=== PATIENT | female | born 1985 | race Caucasian/White ===

== ENCOUNTER 2016-07-22 15:27 | Emergency (ER) | payer MEDICAID | END 2016-07-22 17:22 | disposition home or self-care (01) | DX: S60.221A Contusion of right hand, initial encounter (principal); S63.91XA Sprain of unspecified part of right wrist and hand, initial encounter; W22.09XA Striking against other stationary object, initial encounter; Y92.810 Car as the place of occurrence of the external cause; R03.0 Elevated blood-pressure reading, without diagnosis of hypertension ==

== ENCOUNTER 2016-11-30 17:33 | Emergency (ER) | payer MEDICAID ==
[2016-11-30 17:51] VITALS: BP 129/81
[2016-11-30] MEDS ORDERED: BUFFERED LIDOCAINE 10 ML SYRINGE SUBQ STA (18:44)
[2016-11-30] MEDS ORDERED: BUFFERED LIDOCAINE 10 ML SYRINGE ONE (18:52)
--- NOTE | 2016-11-30 20:17 | ED Physician Documentation ---
History of Present Illness - Stated complaint Stated Complaint: R WRIST INJ - Chief complaint Chief Complaint: Ext Problem - History obtained from History obtained from: Patient (Patient is a 31-year-old yojea-pljy-rqahzoul female who sustained a laceration to her right wrist when she accidentally had it pushed through a glass window pane of a large door. This laceration is on the volar ulnar aspect of her right forearm. She denies any numbness and tingling in movement of her hand is unaffected. Her tetanus is up-to-date she believes she has no other complaints of injury. Bleeding is controlled with direct pressure. Review of systems: For pertinent positive and negatives in the review of systems please see the history of present illness, otherwise all other systems have been reviewed and are negative. Dragon disclaimer: Parts of this medical record were created using voice recognition technology. Because of the inherent limitations of this system, occasional same sounding word substitutions do occur and persist despite proofreading. Please read the document for context.) Review of Systems Musculoskeletal: reports: Extremity pain PD PAST MEDICAL HISTORY - Past Medical History Past Medical History: No - Past Surgical History Past Surgical History: Yes Ortho: ACL reconstruction - Present Medications Home Medications: Ambulatory Orders Medication Instructions Recorded Confirmed Cephalexin [Keflex] 500 mg PO QID #20 capsule 11/30/16 Tramadol HCl 50 mg PO Q8HR PRN #14 tablet 11/30/16 - Allergies Allergies/Adverse Reactions: Allergies Allergy/AdvReac Type Severity Reaction Status Date / Time ibuprofen Allergy Intermediate Cramps Verified 02/26/14 11:06 - Social History Does the pt smoke?: Yes Smoking Status: Current every day smoker Does the pt drink ETOH?: No Does the pt have substance abuse?: No - Immunizations Immunizations are current?: Yes Immunizations: TDAP current <10years - POLST Patient has POLST: No PD ED PE NORMAL - Vitals Vital signs reviewed: Yes - General General: Alert and oriented X 3, No acute distress - Extremities Extremities: Other (She has a 5 cm laceration over the right volar aspect of her forearm. It is over the distal radius. There is another smaller 0.5 cm laceration distal to this.) Results - Vitals Vitals: Vital Signs - 24 hr 11/30/16 17:49 Temperature 36.6 C Heart Rate 94 Respiratory 18 Rate Blood Pressure 129/81 H O2 Saturation 99 Oxygen O2 Source Room air PD MEDICAL DECISION MAKING - ED course Complexity details: re-evaluated patient, d/w patient ED course: Pleasant right-hand dominant 31-year-old female sustained a glass laceration to the right forearm. The wound was cleansed, irrigated, and anesthetized with buffered lidocaine. The patient tolerated procedure well. It was gently irrigated and carefully probed for foreign body. Likely this wound is superficial to the tendons. It was inspected very carefully and there is a small cut into the fascia covering the muscle belly but nothing deep to the level of the artery or the tendons. Tendon function was checked individually for each of the 5 fingers and found to be normal. The wound was retracted and tendon function was determined to be normal while visually examining the tendons of the past deep to the wound. I did not see any tendons whatsoever. The wound was closed using kary. The wound edges were held in close approximation than they were stapled. There is good approximation and hemostasis. It was then cleansed carefully and a compression bandage was placed over the kary. Because of the very deep wound the patient will be treated with a small amount of pain medication and also prophylactic antibiotics. She was subsequently asked to remove the kary in approximately 10 days. 5 cm laceration and one smaller 0.5 cm laceration of the right wrist volar aspect without tendon involvement. Disposition to home Departure - Departure Disposition: 01 Home, Self Care Clinical Impression: Laceration of wrist without complication Qualifiers: Encounter type: initial encounter Laterality: right Qualified Code(s): S61.511A - Laceration without foreign body of right wrist, initial encounter Condition: Good Instructions: Incision Care, ED Laceration Ext Sutr Stap Tape Follow-Up: Lisa Mcintosh ARNP [Primary Care Provider] - Prescriptions: Tramadol HCl 50 mg PO Q8HR PRN #14 tablet PRN Reason: Pain Cephalexin [Keflex] 500 mg PO QID #20 capsule
== END 2016-11-30 20:20 | disposition home or self-care (01) ==
LOC: ED 17:33
DX: S61.511A Laceration without foreign body of right wrist, initial encounter (principal); W25.XXXA Contact with sharp glass, initial encounter; F17.200 Nicotine dependence, unspecified, uncomplicated
CPT/HCPCS: 12002; 99283

== ENCOUNTER 2017-07-24 08:00 | Outpatient (CLI) | payer MEDICAID | END 2017-07-24 08:01 | disposition home or self-care (01) | LOC: LAB.R 08:00 | PROVIDERS: ATTEND Obstetrics & Gynecology | DX: Z11.3 Encounter for screening for infections with a predominantly sexual mode of transmission (principal); Z36.9 Encounter for antenatal screening, unspecified | CPT/HCPCS: 87491; 87591 ==

== ENCOUNTER 2017-08-08 15:03 | Outpatient (CLI) | payer MEDICAID ==
[2017-08-08 17:51] LABS: BASOPHILS % (AUTO) 0.5 %; EOSINOPHILS # (AUTO) 0.2 10^3/uL (0.0-0.7); EOSINOPHILS % (AUTO) 2.7 %; HGB - HEMOGLOBIN 12.5 g/dL (12.0-16.0); LYMPHOCYTES # (AUTO) 1.4 10^3/uL (1.5-3.5); LYMPHOCYTES % (AUTO) 19.9 %; MEAN CORPUSCULAR HEMOGLOBIN 29.3 pg (27.0-31.0); MEAN CORPUSCULAR HGB CONC 34.1 g/dL (32.0-36.0); MONOCYTES # (AUTO) 0.5 10^3/uL (0.0-1.0); MONOCYTES % (AUTO) 6.6 %; NEUTROPHILS % (AUTO) 70.3 %; PLT - PLATELET COUNT 226 10^3/uL (130-450); RED BLOOD COUNT 4.28 10^6/uL (4.20-5.40); WHITE BLOOD COUNT 7.1 x10^3/uL (4.8-10.8)
[2017-08-09 10:01] LABS: HEPATITIS B SURFACE ANTIGEN NON-REACTIVE (NON-REACTIVE); HEPATITIS C ANTIBODY NON-REACTIVE (NON-REACTIVE)
[2017-08-09 15:47] LABS: HIV AG/AB 4TH GEN NON-REACTIVE (NON-REACTIVE)
== END 2017-08-08 15:04 | disposition home or self-care (01) ==
LOC: LAB.F 15:03
PROVIDERS: ATTEND Obstetrics & Gynecology
DX: Z36.9 Encounter for antenatal screening, unspecified (principal); Z11.3 Encounter for screening for infections with a predominantly sexual mode of transmission
CPT/HCPCS: 36415; 81001; 81599; 85025; 86592; 86762; 86803; 86850; 86900; 86901; 87340; 87389

== ENCOUNTER 2017-08-09 14:09 | Outpatient (CLI) | payer MEDICAID ==
[2017-08-09 17:45] LABS: BILIRUBIN,URINE NEGATIVE (NEGATIVE); GLUCOSE, URINE (UA) NEGATIVE (NEGATIVE); KETONES,URINE (UA) NEGATIVE (NEGATIVE); LEUKOCYTE ESTERASE, URINE NEGATIVE (NEGATIVE); NITRITE,URINE NEGATIVE (NEGATIVE); OCCULT BLOOD,URINE NEGATIVE (NEGATIVE); PROTEIN,URINE NEGATIVE (NEGATIVE); UROBILINOGEN,URINE 0.2 (NORMAL) E.U./dL (NORMAL)
[2017-08-09 17:48] LABS: CLARITY,URINE CLEAR (CLEAR)
[2017-08-09 17:58] LABS: BACTERIA,URINE None Seen /HPF (None Seen); RBC,URINE None Seen /HPF (0-5); SQUAMOUS EPITHELIAL CELL,UR NONE SEEN (<= Few)
== END 2017-08-09 14:10 | disposition home or self-care (01) ==
LOC: LAB.F 14:09
PROVIDERS: ATTEND Obstetrics & Gynecology
DX: Z36.9 Encounter for antenatal screening, unspecified (principal); Z11.3 Encounter for screening for infections with a predominantly sexual mode of transmission
CPT/HCPCS: 81001

== ENCOUNTER 2017-08-24 12:40 | Outpatient (CLI) | payer MEDICAID | END 2017-08-24 12:41 | disposition home or self-care (01) | LOC: LAB 12:40 | PROVIDERS: ATTEND Obstetrics & Gynecology | DX: Z13.79 Encounter for other screening for genetic and chromosomal anomalies (principal) | CPT/HCPCS: 36415 ==

== ENCOUNTER 2017-10-18 07:19 | Outpatient (CLI) | payer MEDICAID ==
--- NOTE | 2017-10-18 13:38 | Ultrasound Report ---
Procedure Date: 10/18/2017 Accession Number: [id number] / [id number] Procedure: US - OB Detailed Eval CPT Code: FULL RESULT: EXAM: OB Detailed Eval DATE: 10/18/2017 8:42 AM CLINICAL HISTORY: ENCOUNTER FOR SCREENING, UNSPECIFIED TECHNIQUE: Real-time scanning was performed with novelties sales representative static images obtained. COMPARISON: None LAST MENSTRUAL PERIOD: Unsure US Age: 23 weeks 3 days EFW Hadlock: 574 grams Heart Rate: 137 bpm US EDC: 02/11/18 BPD Hadlock: 23 weeks 5 days; Mean mm 60 HC Hadlock: 23 weeks 3 days; Mean mm 213 AC Hadlock: 23 weeks 2 days; Mean mm 184 FL Hadlock: 23 weeks 1 days; Mean mm 41 Presentation: Cephalic Placental Location: Anterior Cervical Length: 3.5 cm Amniotic Fluid: ROSAMARIA Subjectively normal cm; MVP 5.3 cm FINDINGS: Within the normal-appearing uterus, closed by 3.5 cm cervix resides a single viable intrauterine gestation with estimated weight of 574 g and sonographic age of 23 weeks and 3 days in cephalic presentation with an anterior placenta and no evidence of previa. Maternal adnexa appear unremarkable. The following anatomic structures were visualized and appear normal: The intracranial contents, including the ventricles and posterior fossa; the lips and orbits; the spine; the heart, including 4 chamber view and outflow tracts, and diaphragm; the abdominal contents, including the stomach, the bilateral kidneys, and urinary bladder, as well as a normal 3-vessel cord insertion; 4 limbs. IMPRESSION: Single live intrauterine gestation with a sonographic age of 23 weeks and 3 days.
== END 2017-10-18 07:20 | disposition home or self-care (01) ==
LOC: DI 07:19
PROVIDERS: ATTEND Obstetrics & Gynecology
DX: Z36.9 Encounter for antenatal screening, unspecified (principal)
CPT/HCPCS: 76811

== ENCOUNTER 2017-11-08 10:06 | Outpatient (CLI) | payer MEDICAID | END 2017-11-08 10:07 | disposition home or self-care (01) | LOC: LAB 10:06 | PROVIDERS: ATTEND Obstetrics & Gynecology | DX: Z36.9 Encounter for antenatal screening, unspecified (principal) | CPT/HCPCS: 36415; 82950; 85018; 86850 ==

== ENCOUNTER 2017-12-12 09:33 | Outpatient (CLI) | payer MEDICAID | END 2017-12-12 09:34 | disposition home or self-care (01) | LOC: LAB.R 09:33 | PROVIDERS: ATTEND Obstetrics & Gynecology | DX: O47.03 False labor before 37 completed weeks of gestation, third trimester (principal) | CPT/HCPCS: 82731 ==

== ENCOUNTER 2018-01-11 10:26 | Outpatient (CLI) | payer MEDICAID | END 2018-01-11 10:27 | disposition home or self-care (01) | LOC: LAB.R 10:26 | PROVIDERS: ATTEND Obstetrics & Gynecology | DX: Z11.3 Encounter for screening for infections with a predominantly sexual mode of transmission (principal); Z36.85 Encounter for antenatal screening for Streptococcus B | CPT/HCPCS: 87081; 87491; 87591 ==

== ENCOUNTER 2018-01-15 15:20 | Outpatient (CLI) | payer MEDICAID ==
[2018-01-15 15:52] LABS: BILIRUBIN,URINE NEGATIVE (NEGATIVE); GLUCOSE, URINE (UA) NEGATIVE (NEGATIVE); KETONES,URINE (UA) NEGATIVE (NEGATIVE); LEUKOCYTE ESTERASE, URINE TRACE (NEGATIVE); NITRITE,URINE NEGATIVE (NEGATIVE); OCCULT BLOOD,URINE NEGATIVE (NEGATIVE); PROTEIN,URINE NEGATIVE (NEGATIVE); UROBILINOGEN,URINE 0.2 (NORMAL) E.U./dL (NORMAL)
[2018-01-15 15:58] LABS: CLARITY,URINE HAZY (CLEAR)
[2018-01-15 16:05] LABS: BACTERIA,URINE Few /HPF (None Seen); RBC,URINE 0-5 /HPF (0-5); SQUAMOUS EPITHELIAL CELL,UR MANY Squamous (<= Few)
[2018-01-15 16:24] VITALS: BP 127/79
--- NOTE | 2018-01-15 17:08 | PROVIDER PROGRESS NOTE ---
Subjective - Prog Note Date Prog Note Date: 01/15/18 Prog Note Time: 17:00 - Subjective Pt reports feeling: No change Subjective: Nighat Lindsey is a 32-year-old primigravida at 35 weeks 5 days gestation. She reports uterine contractions off and on for the last 36 hours which have become more regular in the last 4. She does not suspect leakage of fluid nor does she report pelvic pressure. There are no signs or symptoms of preeclampsia or UTI. Objective - Vital Signs/Intake & Output Vital Signs: Vital Signs x48h Temp Pulse Resp BP Pulse Ox 01/15/18 16:23 78 18 127/79 100 01/15/18 15:34 98.1 F 82 18 136/81 H 99 - Lab Results Other Labs: Lab Results x24hrs 01/15/18 Range/Units 15:40 Urine Color YELLOW Urine Clarity HAZY (CLEAR) Urine pH 6.0 (5.0-7.5) PH Ur Specific [place] <=1.005 (1.002-1.030) Urine Protein NEGATIVE (NEGATIVE) mg/dL Urine Glucose (UA) NEGATIVE (NEGATIVE) mg/dL Urine Ketones NEGATIVE (NEGATIVE) mg/dL Urine Occult Blood NEGATIVE (NEGATIVE) Urine Nitrite NEGATIVE (NEGATIVE) Urine Bilirubin NEGATIVE (NEGATIVE) Urine Urobilinogen 0.2 (NORMAL) (NORMAL) E.U./dL Ur Leukocyte Esterase TRACE H (NEGATIVE) Urine RBC 0-5 (0-5) /HPF Urine WBC 4-5 (0-5) /HPF Ur Squamous Epith Cells MANY Squamous H (<= Few) Urine Bacteria Few (None Seen) /HPF Urine Culture Comments NOT INDICATED Physical Exam - Physical Exam General: positive: No acute distress Abdomen: positive: Other (Benign abdominal exam Gravid abdomen with fundal height appropriate for dates, Ritchie vertex position.) Female : positive: Normal external, Dilated cervix (2 cm 50-60% effacement; -2 station; bag of water intact), Enlarged uterus (Uterus appropriate size, flaccid normal resting tone minimal contractions to mild), Other (Category 1 heart tracing; baseline 130s-140s with multiple accelerations and no decelerations moderate variability), Marble Mason present Extremities: positive: No pedal edema Assessment/Plan - Assessment/Plan Assessment: Mild to minimal contractions without cervical change from baseline. Patient is not in labor. Plan: PLAN * Patient given reassurance; * discussed signs and symptoms of labor; * patient visit on at clinic. * Urinalysis negative for UTI
== END 2018-01-15 17:15 | disposition home or self-care (01) ==
LOC: WFO 15:20 → FBP 15:22 → WFO 17:15
PROVIDERS: ATTEND Obstetrics & Gynecology
DX: O47.03 False labor before 37 completed weeks of gestation, third trimester (principal); Z3A.35 35 weeks gestation of pregnancy
CPT/HCPCS: 81001; 87086; 99213

== ENCOUNTER 2018-01-30 11:33 | Outpatient (CLI) | payer MEDICAID ==
[2018-01-31 12:21] LABS: HEPATITIS C ANTIBODY NON-REACTIVE (NON-REACTIVE)
[2018-01-31 14:21] LABS: HIV AG/AB 4TH GEN NON-REACTIVE (NON-REACTIVE)
[2018-02-01 12:26] LABS: HSV 1 IGG TYPE SPECIFIC AB 5.58 index; HSV 2 IGG TYPE SPECIFIC AB 10.8 index
== END 2018-01-30 11:34 | disposition home or self-care (01) ==
LOC: LAB 11:33
PROVIDERS: ATTEND Obstetrics & Gynecology
DX: Z11.3 Encounter for screening for infections with a predominantly sexual mode of transmission (principal)
CPT/HCPCS: 36415; 81599; 86592; 86695; 86696; 86803; 87389

== ENCOUNTER 2018-02-08 06:00 | Inpatient (IN) | payer MEDICAID ==
[2018-02-08] MEDS ORDERED: LACTATED RINGERS 1,000 ML IV ONE (06:15)
[2018-02-08] MEDS ORDERED: OXYTOCIN/SODIUM CHLORIDE 500 ML IV ONE ×2 (06:15→08:33)
[2018-02-08] MEDS ORDERED: SODIUM CHLORIDE FLUSH 0.9% 10 ML SYRINGE ONE (06:15)
[2018-02-08] MEDS ORDERED: SODIUM CHLORIDE FLUSH 0.9% 10 ML SYRINGE IVP PRN (06:18)
[2018-02-08] MEDS ORDERED: LIDOCAINE 1% 50 ML MDV ONE (06:29)
[2018-02-08 06:48] LABS: BASOPHILS % (AUTO) 0.3 %; EOSINOPHILS # (AUTO) 0.1 10^3/uL (0.0-0.7); EOSINOPHILS % (AUTO) 0.7 %; LYMPHOCYTES # (AUTO) 1.2 10^3/uL (1.5-3.5); LYMPHOCYTES % (AUTO) 9.3 %; MEAN CORPUSCULAR HEMOGLOBIN 28.2 pg (27.0-31.0); MEAN CORPUSCULAR HGB CONC 33.9 g/dL (32.0-36.0); MEAN CORPUSCULAR VOLUME 83.2 fL (81.0-99.0); MEAN PLATELET VOLUME 8.1 fL (7.9-10.8); MONOCYTES # (AUTO) 0.9 10^3/uL (0.0-1.0); MONOCYTES % (AUTO) 7.1 %; NEUTROPHILS # (AUTO) 10.6 10^3/uL (1.5-6.6); NEUTROPHILS % (AUTO) 82.6 %; PLT - PLATELET COUNT 213 10^3/uL (130-450); RED BLOOD COUNT 4.26 10^6/uL (4.20-5.40); RED CELL DISTRIBUTION WIDTH 15.4 % (12.0-15.0); WHITE BLOOD COUNT 12.8 x10^3/uL (4.8-10.8)
--- NOTE | 2018-02-08 06:59 | HISTORY & PHYSICAL EXAMINATION ---
Admit History - Visit Reason Visit Reason: Contractions (Sudden onset at 0145.) - : 2 Parity: 0 Premature: 0 Ectopic: 0 : 1 Care: positive: [facility] Complications This : positive: None (Pt is O+ Rhubella nonimmune, GBS negative) Smoking Status: Former smoker - Mother's Labs Mother's Blood Type: positive: O Mother's RH: positive: Positive GBS: positive: Group B Step Negative Rubella Status: positive: Non-immune - Other Maternal History Other Maternal History: Monica started her OB care at 10 weeks. regular visits. 50 Gm 126. Ob course unremarkable. Meds/Allgy - Home Medications Home Medications: Ambulatory Orders Medication Instructions Recorded Confirmed Cephalexin [Keflex] 500 mg PO QID #20 capsule 11/30/16 Tramadol HCl 50 mg PO Q8HR PRN #14 tablet 11/30/16 - Allergies Allergies/Adverse Reactions: Allergies Allergy/AdvReac Type Severity Reaction Status Date / Time ibuprofen Allergy Intermediate Cramps Verified 02/26/14 11:06 Review of Systems - Constitutional Constitutional: denies: Fatigue, Fever - Eyes Eyes: denies: Pain Physical - Abdominal Exam Contraction Frequency (min/apart): q 3 min Contraction Intensity: positive: Strong Uterine Resting Tone: positive: Soft - Monitoring Heart Rate Baseline: 130 Strip Review: positive: Category I - Presentation Presentation: positive: Vertex - Vaginal Exam Membranes: positive: Membranes intact Dilation (in cm): 7 Effacement (%): 90 Station: positive: 0 Cervical Position: positive: Midposition - Speculum Exam Speculum Exam Performed: positive: No - Other Notes Labor Progress Note/Additional Text: Pt is a 32 YO EDC 02/14/18, 39.1 weeks with spontaneous onset of labor. currently /0. Reviewed pain control. pt declines Epidural, NO2. laboring well. GBS negative, Rubella nonimmune.
[2018-02-08] MEDS ORDERED: LACTATED RINGERS 1,000 ML IV SCH ×2 (07:00→10:00)
[2018-02-08] MEDS ORDERED: SODIUM CHLORIDE FLUSH 0.9% 10 ML SYRINGE IVP SCH (09:00)
[2018-02-08] MEDS ORDERED: ACETAMINOPHEN 500 MG TABLET PO SCH (10:00)
[2018-02-08] MEDS ORDERED: OXYTOCIN/SODIUM CHLORIDE 500 ML IV SCH (10:00)
[2018-02-08] MEDS: HYDROcod/ACETAM 5/325 MG TABLET PO PRN ×3 (10:27→18:41)
[2018-02-08] MEDS: DOCUSATE SODIUM 100 MG CAPSULE PO SCH ×2 (10:28→23:55)
[2018-02-08] MEDS ORDERED: HYDROCORTISONE/PRAMOXINE 10 GM PR PRN (16:56)
[2018-02-08] MEDS ORDERED: MEASLES,MUMPS & RUBELLA VACC 0.5 ML VIAL SUBQ ONE (17:00)
--- NOTE | 2018-02-08 17:27 | DELIVERY NOTE ---
Delivery Note - Labor Labor: positive: Spontaneous - Delivery Method Delivery Method: positive: Spontaneous vaginal delivery - Presentation Presentation: positive: Vertex, Compound (left hand), KEVIN - left occiput anterior - Nuchal Cord Nuchal Cord: positive: None (True knot) - Anesthetic Anesthetic Type: Anesthetic: positive: Lidocaine - 1% plain Volume: positive: Other (30 ml) - Amniotic Fluid Description Amniotic Fluid Description: positive: Clear - Episiotomy Type Episiotomy Type: positive: None - Laceration Laceration: positive: Labial (left and right second degree) - Suture Suture Type: positive: Vicryl Suture Size: positive: 3-0 - Delivery Outcome Delivery Outcome: positive: Livebirth - [place]on: positive: Placed in direct skin contact with mother, Bulb syringe, Stimulated, [place] used sex: positive: Female (Antonino) - Cord Cord: positive: 3 vessels (true knot) - Placenta Placenta: positive: Intact - Estimated Blood Loss Estimated Blood Loss (in cc): 350 - Delivery Comments (Free Text/Narrative) Delivery Comments (Free Text/Narrative): pt reached complete at 0735, AROM 3 min later with clear fluid. Pushing commenced at 0746. good expulsitory effort delivered a live female with apgars of 9/9 over an intact perneum at 0757. Left compound hand encountered. Placenta followed complete 18 min later. It was inspected and determined to be intact. Two labial laturations nmoted dn repared unde local anastheais adn 3-0 Vicril. Total EBL 350 ml.
[2018-02-08] MEDS: HYDROCORTISONE 1% CREAM 28 GM TUBE TOP SCH (18:44)
[2018-02-08] MEDS ORDERED: HYDROCORTISONE 1% CREAM 28 GM TUBE TOP SCH (21:00)
[2018-02-08] MEDS: ACETAMINOPHEN 500 MG TABLET PO PRN (23:54)
[2018-02-09 07:11] LABS: BASOPHILS # (AUTO) 0.1 10^3/uL (0.0-0.1); BASOPHILS % (AUTO) 0.7 %; EOSINOPHILS # (AUTO) 0.1 10^3/uL (0.0-0.7); EOSINOPHILS % (AUTO) 0.9 %; HGB - HEMOGLOBIN 10.8 g/dL (12.0-16.0); LYMPHOCYTES # (AUTO) 1.6 10^3/uL (1.5-3.5); LYMPHOCYTES % (AUTO) 16.1 %; MEAN CORPUSCULAR HEMOGLOBIN 27.6 pg (27.0-31.0); MEAN CORPUSCULAR HGB CONC 32.7 g/dL (32.0-36.0); MEAN CORPUSCULAR VOLUME 84.4 fL (81.0-99.0); MONOCYTES # (AUTO) 0.8 10^3/uL (0.0-1.0); MONOCYTES % (AUTO) 8.1 %; NEUTROPHILS # (AUTO) 7.3 10^3/uL (1.5-6.6); NEUTROPHILS % (AUTO) 74.2 %; PLT - PLATELET COUNT 180 10^3/uL (130-450); RED CELL DISTRIBUTION WIDTH 15.6 % (12.0-15.0); WHITE BLOOD COUNT 9.8 x10^3/uL (4.8-10.8)
[2018-02-09] MEDS: DOCUSATE SODIUM 100 MG CAPSULE PO SCH (08:42)
[2018-02-09] MEDS: ACETAMINOPHEN 500 MG TABLET PO PRN (08:42)
--- NOTE | 2018-02-09 11:05 | PROVIDER PROGRESS NOTE ---
Subjective - Prog Note Date Prog Note Date: 02/09/18 Prog Note Time: 11:03 - Subjective Pt reports feeling: Improved Subjective: Patient sitting in bed. Family members with her at bedside. Baby just had a photo shoot. Nighat doing well. Ambulating and tolerating a regular diet. Urinating without difficulty and pain controlled with po Tylenol. Normal lochia. Verbalizes her desire to go home. Still awaiting baby to pass stool. Objective - Vital Signs/Intake & Output Reviewed Vital Signs: Yes Vital Signs: Vital Signs x48h Temp Pulse Resp BP Pulse Ox 02/09/18 08:35 270.9 F H 94 16 132/73 H 99 02/09/18 04:40 98.2 F 80 16 112/61 99 Intake & Output: Intake & Output 02/06/18 02/07/18 02/08/18 02/09/18 23:59 23:59 23:59 23:59 Output Total 551 Balance -551 - Objective General Appearance: positive: No acute distress Eyes Bilateral: positive: Normal inspection Abdomen: positive: Non-tender (Firm fundus) Extremities: positive: Non-tender, Nml appearance Neurologic/Psychiatric: positive: Oriented x3 - Lab Results Fish Bones: 02/09/18 06:45 Other Labs: Lab Results x24hrs 02/09/18 Range/Units 06:45 WBC 9.8 (4.8-10.8) x10^3/uL RBC 3.90 L (4.20-5.40) 10^6/uL Hgb 10.8 L (12.0-16.0) g/dL Hct 32.9 L (37.0-47.0) % MCV 84.4 (81.0-99.0) fL MCH 27.6 (27.0-31.0) pg MCHC 32.7 (32.0-36.0) g/dL RDW 15.6 H (12.0-15.0) % Plt Count 180 (130-450) 10^3/uL MPV 8.0 (7.9-10.8) fL Neut # (Auto) 7.3 H (1.5-6.6) 10^3/uL Lymph # (Auto) 1.6 (1.5-3.5) 10^3/uL [place] # (Auto) 0.8 (0.0-1.0) 10^3/uL Eos # (Auto) 0.1 (0.0-0.7) 10^3/uL Baso # (Auto) 0.1 (0.0-0.1) 10^3/uL Absolute Nucleated RBC 0.00 x10^3/uL Nucleated RBC % 0.0 /100WBC Assessment/Plan - Problem List (1) Vaginal delivery Impression: 32 yo S/p Normal recovery Discharge to home Take OTC tylenol for pain Follow up with Dr Angeles in 3 and 8 weeks Call for worsening fevers, chills, abdominal pain or vaginal bleeding Discharge Plan Disposition: 01 Home, Self Care Condition: Good Diet: Regular Activity Restrictions: Activity as Tolerated Shower Restrictions: No Driving Restrictions: No No Smoking: If you smoke, Please STOP! Call for help.
[2018-02-09] MEDS: HYDROcod/ACETAM 5/325 MG TABLET PO PRN (11:56)
[2018-02-09] MEDS ORDERED: MEASLES,MUMPS & RUBELLA VACC 0.5 ML VIAL SUBQ ONE (12:00)
[2018-02-09 12:03] VITALS: BP 129/68
--- NOTE | 2018-02-09 12:33 | DISCHARGE SUMMARY ---
Physician: Gina Jamil DO FACOG DATE OF ADMISSION: 02/08/2018 DATE OF DISCHARGE: 02/09/2018 DIAGNOSES ON ADMISSION 1. A 32-year-old G2, P0-0-1-0 with a 39 and 1/7 week intrauterine . 2. Active labor. DIAGNOSES ON DISCHARGE 1. A 32-year-old G2, P1-0-0-1, status post spontaneous vaginal delivery 02/08/2018. 2. Normal recovery. BRIEF HISTORY: The patient is a patient at [facility] who presented to labor and delivery on 02/08/2018. She was found to be in active labor at 7 cm dilated, 80% effaced and -1 station. The patient spontaneously delivered a viable female infant weighing 3448 gram. Apgars are 9 and 9 at 1 and 5 minutes respectively. A compound hand was encountered. The patient sustained 2 labial lacerations that were repaired with 3-0 Vicryl. EBL 350 mL. A true knot was noted at the time of delivery. The baby's name is Antonino. The patient's course has been unremarkable. She is ambulating and tolerating a regular diet. The patient is also urinating without difficulty, and her lochia is described as normal. Her pain is controlled with oral Tylenol. The patient will be discharged home today with instructions to followup with us at [facility] in 3 and 8 weeks. She is to take Tylenol for any pain she may experience. The patient is to call if she has any fevers, chills, abdominal pain or vaginal bleeding that has worsened. TD: 02/09/2018 11:17 MICHAEL
[2018-02-09] MEDS: HYDROCORTISONE 1% CREAM 28 GM TUBE TOP SCH (12:59)
--- NOTE | 2018-02-09 14:48 | Labor Flowsheet ---
Labor Flowsheet Datetime Report Generated by CPN: 02/09/2018 14:47 Datetime: 02/09/2018 11:28 VITAL SIGNS NBP Sys/Jennifer/Mean (mmHg): 129 : 68 : 81 Pulse: 85 LaborFlag: Labor Datetime: 02/08/2018 19:54 SpO2 (%): 99 Datetime: 02/08/2018 07:55 UTERINE ACTIVITY Monitor Mode: Palpation Frequency (min): 2-3 Quality: Strong Pattern: Normal: <= 5 Contractions in 10 Minutes Contraction Comments: pushing with each ctx ASSESSMENT A Monitor Mode: Telemetry Variability: Moderate 6-25 bpm Accelerations: 15X15 Category: Category I Comments: FHR 145-165 accels, unable to get FHR with head , FHT heard at 130s PATIENT CARE Oxygen Method: Room Air Datetime: 02/08/2018 07:46 STAGE 2 Pushing: Urge to Push Pushing Position: Pushing with Contractions Pushing Progress: Descent with Pushing Stage 2 Comments: baby delivereda t 0757 compound left hand and true knot Datetime: 02/08/2018 07:38 Membrane Status: Ruptured Membranes Rupture Method: Artificial Amniotic Fluid Color: Clear Amniotic Fluid Amount: Small Datetime: 02/08/2018 07:35 Duration (sec): 60-110 Resting Tone (Palpate): Relaxed FHR Baseline Rate : 140 PAIN Pain Coping: Breathing Through Contractions; Crying Pain Assessment Comments: pt has strong urge to push. VAGINAL EXAM Dilatation (cm): 10.0 Effacement (%): 100 Station: 2 Exam by: dr giem Comfort Measures: Breathing/Relaxation; Coaching COMMUNICATION Communication: Provider at Bedside Datetime: 02/08/2018 07:24 Vaginal Exam Comments: bulgy bag Datetime: 02/08/2018 06:52 Patient Position/Activity: Standing; Walking I/O Interventions: Up to BR Datetime: 02/08/2018 06:50 Decelerations: Variable
== END 2018-02-09 13:00 | disposition home or self-care (01) | DRG 807 ==
LOC: WFO 06:00 → FBP 06:02 → WFO 06:10 → FBP 06:11 → EEVIPCON 06:11
PROVIDERS: ADMIT Obstetrics & Gynecology; ATTEND Obstetrics & Gynecology
PROC: 10E0XZZ Delivery of Products of Conception, External Approach (ICD-10-PCS; principal; 2018-02-08)
PROC: 0KQM0ZZ Repair Perineum Muscle, Open Approach (ICD-10-PCS; 2018-02-08)
PROC: 10907ZC Drainage of Amniotic Fluid, Therapeutic from Products of Conception, Via Natural or Artificial Opening (ICD-10-PCS; 2018-02-08)
DX: O69.2XX0 Labor and delivery complicated by other cord entanglement, with compression, not applicable or unspecified (principal); Z37.0 Single live birth; O32.6XX0 Maternal care for compound presentation, not applicable or unspecified; Z3A.39 39 weeks gestation of pregnancy; Z28.3 Underimmunization status; O70.1 Second degree perineal laceration during delivery
CPT/HCPCS: 36415; 85025; 99213

== ENCOUNTER 2018-04-18 20:36 | Outpatient (CLI) | payer MEDICAID ==
--- NOTE | 2018-04-19 01:34 | Ultrasound Report ---
Reason: MENORRHAGIA Procedure Date: 04/18/2018 Accession Number: [id number] / [id number] Procedure: US - Pelvic w/Transvaginal CPT Code: FULL RESULT: EXAM: PELVIC ULTRASOUND EXAM DATE: 04/18/2018 09:00 PM. CLINICAL HISTORY: MENORRHAGIA. COMPARISON: None. TECHNIQUE: Realtime transabdominal pelvic scan performed to identify the uterus and adnexa and as an overview of other pelvic structures, followed by transvaginal scan to provide greater detail of the uterus and adnexa, with static image documentation. FINDINGS: Uterus: 7.9 x 5.7 x 4.4 cm, volume 103 cc. Anteverted position. Normal overall size and echotexture. Masses: None. Endometrium: 5 mm. No focal endometrial abnormalities. Trace fluid Cervix: Unremarkable aside from a small nabothian cyst. Right Ovary: 3.6 x 2.6 x 1.8 cm, volume 8.8 cc. Normal echotexture and blood flow. Left Ovary: Visualized. Free Fluid: None. Other: None. IMPRESSION: No acute sonographic abnormalities. RADIA
== END 2018-04-18 20:37 | disposition home or self-care (01) ==
LOC: DI 20:36
PROVIDERS: ATTEND Obstetrics & Gynecology
DX: N92.0 Excessive and frequent menstruation with regular cycle (principal)
CPT/HCPCS: 76830; 76856

== ENCOUNTER 2020-08-21 10:34 | Outpatient (CLI) | payer MEDICAID ==
[2020-08-21 14:57] LABS: BASOPHILS # (AUTO) 0.1 10^3/uL (0.0-0.1); BASOPHILS % (AUTO) 1.2 %; EOSINOPHILS # (AUTO) 0.1 10^3/uL (0.0-0.7); EOSINOPHILS % (AUTO) 2.4 %; HCT - HEMATOCRIT 43.3 % (37.0-47.0); HGB - HEMOGLOBIN 14.3 g/dL (12.0-16.0); LYMPHOCYTES # (AUTO) 1.3 10^3/uL (1.5-3.5); LYMPHOCYTES % (AUTO) 26.8 %; MEAN CORPUSCULAR HEMOGLOBIN 30.2 pg (27.0-31.0); MEAN CORPUSCULAR VOLUME 91.5 fL (81.0-99.0); MEAN PLATELET VOLUME 10.3 fL (7.9-10.8); MONOCYTES # (AUTO) 0.5 10^3/uL (0.0-1.0); MONOCYTES % (AUTO) 9.8 %; NEUTROPHILS % (AUTO) 59.6 %; PLT - PLATELET COUNT 219 10^3/uL (130-450); RED BLOOD COUNT 4.73 10^6/uL (4.20-5.40); RED CELL DISTRIBUTION WIDTH 12.5 % (12.0-15.0)
[2020-08-21 15:12] LABS: ALBUMIN 4.7 g/dL (3.2-5.5); ALBUMIN/GLOBULIN RATIO 1.9 (1.0-2.2); CALCIUM 9.3 mg/dL (8.5-10.3); CREATININE 0.8 mg/dL (0.4-1.0); POTASSIUM 4.2 mmol/L (3.5-5.0); TOTAL PROTEIN 7.2 g/dL (6.7-8.2)
[2020-08-21 15:21] LABS: THYROID STIMULATING HORMONE 0.9 uIU/mL (0.34-5.60)
== END 2020-08-21 10:35 | disposition home or self-care (01) ==
LOC: LAB.S 10:34
PROVIDERS: ATTEND Registered Nurse
DX: L30.9 Dermatitis, unspecified (principal); N92.0 Excessive and frequent menstruation with regular cycle
CPT/HCPCS: 36415; 80050

== ENCOUNTER 2020-12-16 08:19 | Outpatient (CLI) | payer MEDICAID ==
[2020-12-16 14:45] LABS: T4 (THYROXINE) 5.89 ug/dL (6.09-12.23)
[2020-12-16 14:54] LABS: FERRITIN 10.7 ng/mL (11.0-306.8)
== END 2020-12-16 08:20 | disposition home or self-care (01) ==
LOC: LAB.S 08:19
PROVIDERS: ATTEND Nurse Practitioner
DX: L65.9 Nonscarring hair loss, unspecified (principal)
CPT/HCPCS: 36415; 80050; 80327; 82306; 82728; 84436; 84480

== ENCOUNTER 2021-01-29 13:38 | Outpatient (CLI) | payer MEDICAID ==
[2021-02-03 12:16] LABS: NIL 0.02 IU/mL; TB2-NIL 0.01 IU/mL
== END 2021-01-29 13:39 | disposition home or self-care (01) ==
LOC: LAB.S 13:38
PROVIDERS: ATTEND Registered Nurse
DX: Z00.00 Encounter for general adult medical examination without abnormal findings (principal)
CPT/HCPCS: 36415; 86480

== ENCOUNTER 2022-07-15 08:47 | Outpatient (CLI) | payer BC ==
--- NOTE | 2022-07-15 13:11 | XRAY Report ---
PROCEDURE: Lumbar Spine 2 View INDICATIONS: LUMBAR DISC DISPLACEMENT, DYSFUNCTION OF LUMBAR RE TECHNIQUE: 2 views of the lumbar spine were acquired. COMPARISON: None. FINDINGS: Bones: 5 [id number] vertebrae are present. There is normal bony alignment. No vertebral body compression fractures. No suspicious bony lesions. Mild degenerative disc disease and facet arthrop athy at L5-S1. Soft tissues: Overlying bowel gas pattern is normal. No suspicious soft tissue calcifications. IMPRESSION: 1. Mild degenerative disc and facet disease in lumbar spine. If clinical symptoms persist, MRI may be helpful. Reviewed by: Rodrick Henriquez MD on 07/15/2022 1:09 PM PDT Approved by: Rodrick Henriquez MD on 07/15/2022 1:09 PM PDT Station ID: [id number]
== END 2022-07-15 08:48 | disposition home or self-care (01) ==
LOC: DI.S 08:47
PROVIDERS: ATTEND Chiropractor
DX: M51.37 Other intervertebral disc degeneration, lumbosacral region (principal); M47.817 Spondylosis without myelopathy or radiculopathy, lumbosacral region

== ENCOUNTER 2022-08-23 07:29 | Outpatient (CLI) | payer BC ==
[2022-08-23 15:03] LABS: THYROID STIMULATING HORMONE 1.28 uIU/mL (0.34-5.60)
[2022-08-23 15:05] LABS: CHOL/HDL RATIO 2.9 (<4.4); CHOLESTEROL 179 mg/dL; HDL CHOLESTEROL 62 mg/dL; LDL CHOLESTEROL,CALCULATED 103 mg/dL; LDL/HDL RATIO 1.7 (<4.4); TRIGLYCERIDES 70 mg/dL; VLDL CHOLESTEROL 14 mg/dL
[2022-08-23 15:09] LABS: PROLACTIN 10.54 ng/mL
[2022-08-23 15:31] LABS: FOLLICLE STIMULATING HORMONE 9.92 mIU/mL
[2022-08-23 15:32] LABS: LUTEINIZING HORMONE 6.54 mIU/mL
[2022-08-23 21:19] LABS: ESTIMATED AVERAGE GLUCOSE 94 mg/dL (70-100); HEMOGLOBIN A1c% 4.9 % (4.27-6.07)
[2022-08-24 07:10] LABS: ESTRADIOL 23.7 pg/mL (.); PROGESTERONE 0.3 ng/mL (.)
[2022-08-24 20:07] LABS: FREE TESTOSTERONE(DIRECT) 3.4 pg/mL (0.0-4.2)
== END 2022-08-23 07:30 | disposition home or self-care (01) ==
LOC: LAB.S 07:29
PROVIDERS: ATTEND Nurse Practitioner
DX: E28.2 Polycystic ovarian syndrome (principal); N93.9 Abnormal uterine and vaginal bleeding, unspecified
CPT/HCPCS: 36415; 80061; 82397; 82626; 82670; 83001; 83002; 83036; 83721; 84143; 84144; 84146; 84270; 84402; 84403; 84443